=== PATIENT | female | born 1950 | race African-American/Black ===

== ENCOUNTER 2016-12-24 07:20 | Emergency (ER) | payer BC, SELFPAY ==
[~2016-12-24] VITALS: Ht 157.5 cm; Wt 65.0 kg
[2016-12-24 10:24] LABS: CLARITY URINE TURBID (CLEAR); COLOR URINE DARK YELLOW (YELLOW); GLUCOSE URINE NEGATIVE (NEGATIVE); KETONES URINE 3+ (NEGATIVE); LEUKOCYTE ESTERASE URINE 3+ (NEGATIVE); NITRITE URINE POSITIVE (NEGATIVE); OCCULT BLOOD URINE 3+ (NEGATIVE); PH URINE 5.5 (4.5-8.0); PROTEIN URINE 1+ (NEGATIVE); SPECIFIC GRAVITY URINE 1.019 (1.005-1.030)
[2016-12-24 12:13] VITALS: BP 132/81
== END 2016-12-24 12:31 | disposition home or self-care (01) ==
LOC: ER 09:07
DX: N39.0 Urinary tract infection, site not specified (principal); F17.210 Nicotine dependence, cigarettes, uncomplicated; F12.10 Cannabis abuse, uncomplicated
CPT/HCPCS: 81001; 99283